=== PATIENT | female | born 1975 | race Caucasian/White ===

== ENCOUNTER 2016-05-04 13:45 | Emergency (ER) | payer MEDICAID ==
[2016-05-04 14:01] VITALS: O2SAT 96
[2016-05-04] MEDS ORDERED: NS 1,000 ML IV ONE (14:11)
[2016-05-04] MEDS ORDERED: HYDROmorphONE/DILAUDID 1 MG/ML SYR IVP ONE (14:11)
[2016-05-04] MEDS ORDERED: LORazepam 2 MG/ML INJ IVP ONE (14:11)
--- NOTE | 2016-05-04 14:14 | EDPHY ---
H & P Stated Complaint: Burning vagina pain, ETOH withdrawl Time Seen by Provider: 05/04/16 14:10 HPI/ROS: CHIEF COMPLAINT: Vaginal burning and withdrawal HISTORY OF PRESENT ILLNESS: The patient is a 41-year-old female who comes to the emergency department with her complaining of withdrawal symptoms as well as vaginal burning. She states that her last drink was about 24 hours ago. She is an alcoholic. She had been doing well until 2 weeks ago when she had a spontaneous miscarriage. She states that she bled for about 10 days. She stopped bleeding 3 days ago. She was only 5 or 6 weeks along. She became depressed and went on "a Rogers". She began notice vaginal pain and burning about 2 days ago. She has not had any rashes or discharge. She denies any sexual promiscuity. She is now vomiting as well from withdrawals. She is tremulous and tachycardic and hypertensive. REVIEW OF SYSTEMS: Constitutional: denies: chills, fever, recent illness, recent injury EENTM: denies: blurred vision, double vision, nose congestion Respiratory: denies: cough, shortness of breath Cardiac: denies: chest pain, irregular heart rate, lightheadedness, palpitations Gastrointestinal/Abdominal: denies: abdominal pain, diarrhea, nausea, vomiting, blood streaked stools Genitourinary: See HPI Musculoskeletal: denies: joint pain, muscle pain Skin: denies: lesions, rash, jaundice, bruising Neurological: denies: headache, numbness, paresthesia, tingling, dizziness, weakness Hematologic/Lymphatic: denies: blood clots, easy bleeding, easy bruising Immunologic/allergic: denies: HIV/AIDS, transplant EXAM: GENERAL: Well-appearing, well-nourished and in no acute distress. HEAD: Atraumatic, normocephalic. EYES: Pupils equal round and reactive to light, extraocular movements intact, sclera anicteric, conjunctiva are normal. ENT: TMs normal, nares patent, oropharynx clear without exudates. Moist mucous membranes. NECK: Normal range of motion, supple without lymphadenopathy or JVD. LUNGS: Breath sounds clear to auscultation bilaterally and equal. No wheezes rales or rhonchi. HEART: Regular rate and rhythm without murmurs, rubs or gallops. ABDOMEN: Soft, nontender, normoactive bowel sounds. No guarding, no rebound. No masses appreciated. : mild erythema to vulva . No significant swelling. No abscess. No discharge. No cervical motion tenderness. BACK: No CVA tenderness, no spinal tenderness, step-offs or deformities EXTREMITIES: Normal range of motion, no pitting or edema. No clubbing or cyanosis. NEUROLOGICAL: Cranial nerves II through XII grossly intact. Normal speech, normal gait. 5/5 strength, normal movement in all extremities, normal sensation PSYCH: Normal mood, normal affect. SKIN: Warm, dry, normal turgor, no visible rashes or lesions. Source: Patient Exam Limitations: No limitations - Personal History LMP (Females 10-55): 1-7 Days Ago Current Tetanus/Diphtheria Vaccine: Unsure Current Tetanus Diphtheria and Acellular Pertussis (TDAP): Unsure - Medical/Surgical History Hx Asthma: No Hx Chronic Respiratory Disease: No Hx Diabetes: No Hx Cardiac Disease: No Hx Renal Disease: No Hx Cirrhosis: No Hx Alcoholism: Yes Hx HIV/AIDS: No Hx Splenectomy or Spleen Trauma: No Other PMH: etoh. dermatomatasitis. - Family History Significant Family History: No pertinent family hx - Social History Smoking Status: Current some day smoker Alcohol Use: Heavy Drug Use: Marijuana Constitutional: Initial Vital Signs Temperature (C) 36.8 C 05/04/16 13:59 Heart Rate 84 05/04/16 13:59 Respiratory Rate 16 05/04/16 13:59 Blood Pressure 168/118 H 05/04/16 13:59 O2 Sat (%) 96 05/04/16 13:59 O2 Delivery Mode Room Air Allergies/Adverse Reactions: Penicillins Allergy (Intermediate, Verified 05/04/16 14:01) Rash Home Medications: Medication Instructions Recorded Fluconazole [Diflucan (*)] 150 mg PO ONCE #1 tab 05/04/16 Medical Decision Making ED Course/Re-evaluation: Patient has mild erythema vulva consistent with a candidiasis. Treat her with Diflucan. GC Chlamydia and wet prep been sent. She is feeling much better after Ativan. She is eager to go home with her who is a rate addiction recovery counselor. She has resources. She declines alcohol recovery Center. I will discharge her with a take-home pack of Librium. 3:10 p.m. I discussed the case with Dr. Erika Gould who agrees with follow up for repeat quant. She does not recommend ultrasound. If the patient is not currently bleeding. Differential Diagnosis: Partial list of the Differential diagnosis considered include but were not limited to; it denies this, pelvic inflammatory disease, yeast infection, alcohol withdrawal, anxiety and although unlikely based on the history and physical exam, I also considered , trauma. I discussed these differential diagnoses and the plan with the patient as well as the usual and expected course. The patient understands that the diagnosis is provisional and that in medicine we are not always correct and that further workup is often warranted. Usual and customary warnings were given. All of the patient's questions were answered. The patient was instructed to return to the emergency department should the symptoms at all worsen or return, otherwise to followup with the physician as we discussed. - Data Points Laboratory Results: Laboratory Results 05/04/16 14:20 05/04/16 14:20 05/04/16 14:40 C.trachomatis RNA (TMA) NEGATIVE (NEGATIVE) N.gonorrhoeae RNA (TMA) NEGATIVE (NEGATIVE) Medications Given: Discontinued Medications Chlordiazepoxide (Librium 25 Mg Prepack#6) 1 btl TAKEHOME EDNOW ONE Stop: 05/04/16 14:49 Last Admin: 05/04/16 15:09 Dose: 1 btl Fluconazole (Diflucan) 150 mg PO ONCE ONE Stop: 05/04/16 14:45 Last Admin: 05/04/16 15:09 Dose: 150 mg Hydromorphone HCl (Dilaudid) 1 mg IVP EDNOW ONE Stop: 05/04/16 14:12 Last Admin: 05/04/16 14:30 Dose: 1 mg Sodium Chloride (Ns) 1,000 mls @ 0 mls/hr IV ONCE ONE PRN Reason: Wide Open Stop: 05/04/16 14:12 Last Admin: 05/04/16 14:29 Dose: 1,000 mls Lorazepam (Ativan Injection) 2 mg IVP EDNOW ONE Stop: 05/04/16 14:12 Last Admin: 05/04/16 14:29 Dose: 2 mg Ondansetron HCl (Zofran Odt) 4 mg PO EDNOW ONE Stop: 05/04/16 15:18 Last Admin: 05/04/16 15:18 Dose: 4 mg Departure - Departure Disposition: Home, Routine, Self-Care Clinical Impression: Yeast infection of the vagina Alcohol withdrawal Qualifiers: Complication of substance-induced condition: with unspecified complication Qualified Code(s): F10.239 - Alcohol dependence with withdrawal, unspecified Condition: Fair Instructions: Chlordiazepoxide (By mouth), Vulvovaginal Candidiasis (ED), Alcohol Withdrawal (ED) Referrals: Fabiola Reese DO [Doctor of Osteopathy] - As per Instructions Erika Gould MD [Medical Doctor] - As per Instructions Prescriptions: Fluconazole [Diflucan (*)] 150 mg PO ONCE #1 tab
[2016-05-04 14:35] LABS: % IMMATURE GRANULYOCYTES 0.2 % (0.0-1.1); ABSOLUTE IMMATURE GRANULOCYTES 0.02 10^3/uL (0.00-0.10); ADD DIFF? NO; ADD MORPH? NO; ADD SCAN? NO; ATYPICAL LYMPHOCYTE FLAG 0 (0-99); FRAGMENT RBC FLAG 0 (0-99); HEMATOCRIT 40.4 % (38.0-47.0); HEMOGLOBIN 14.1 g/dL (12.6-16.3); LEFT SHIFT FLG 0 (0-99); LIPEMIA HEMOLYSIS FLAG 90 (0-99); MEAN CELL HEMOGLOBIN 33.3 pg (27.9-34.1); MEAN CELL HEMOGLOBIN CONCENTR. 34.9 g/dL (32.4-36.7); MEAN CELL VOLUME 95.3 fL (81.5-99.8); MEAN PLATELET VOLUME 9.4 fL (8.7-11.7); PLATELET CLUMPS FLAG 0 (0-99); PLATELET COUNT 266 10^3/uL (150-400); RED BLOOD CELL COUNT 4.24 10^6/uL (4.18-5.33); RED CELL DISTRIBUTION WIDTH 12.3 % (11.5-15.2)
[2016-05-04] MEDS ORDERED: FLUCONAZOLE 150 MG TAB PO ONE (14:44)
[2016-05-04] MEDS ORDERED: CHLORDIAZEPOXIDE 25MG PREPK#6 BTL TAKEHOME ONE (14:48)
[2016-05-04 14:51] LABS: ANION GAP 15 mEq/L (8-16); CALCIUM 10.8 mg/dL (8.5-10.4); CARBON DIOXIDE 21 mEq/l (22-31); CHLORIDE 101 mEq/L (97-110); CREATININE 0.7 mg/dL (0.6-1.0); GLOMERULAR FILTRATION RATE > 60; GLUCOSE 101 mg/dL (70-100); POTASSIUM 3.9 mEq/L (3.5-5.2); SODIUM 137 mEq/L (134-144)
[2016-05-04] MEDS ORDERED: ONDANSETRON DISINTEGRATING 4 MG TAB ONE (15:08)
[2016-05-04] MEDS ORDERED: ONDANSETRON DISINTEGRATING 4 MG TAB PO ONE (15:17)
[2016-05-04 15:18] LABS: COLOR YELLOW; LEUKOCYTE ESTERASE,URINE NEGATIVE (NEGATIVE); NITRITE,URINE NEGATIVE (NEGATIVE)
[2016-05-04 15:22] VITALS: BP 154/103; PULSE 75; RESP 18; TEMP 97.9
[2016-05-04 15:26] LABS: MUCUS TRACE /lpf (NONE-1+)
[2016-05-06 13:17] LABS: CHLAMYDIA AMPLIFICATION GENPRB NEGATIVE (NEGATIVE)
== END 2016-05-04 15:22 | disposition home or self-care (01) ==
DX: F10.239 Alcohol dependence with withdrawal, unspecified (principal); B37.3 Candidiasis of vulva and vagina; F17.200 Nicotine dependence, unspecified, uncomplicated
CPT/HCPCS: 96374; J1170; J2060

== ENCOUNTER 2016-06-16 16:23 | Emergency (ER) | payer MEDICAID ==
--- NOTE | 2016-06-16 16:31 | EDPHY ---
H & P Time Seen by Provider: 06/16/16 16:31 HPI/ROS: CHIEF COMPLAINT: Shaky and vaginal pain HISTORY OF PRESENT ILLNESS: Patient presents shaky today having had last drink yesterday. History of alcoholism. Symptoms are moderate to severe. She went to the bathroom and urinated and then had pain. She is not 100% sure if she can tell me it is dysuria or vaginal pain but feels similar to previous ED visit when she was diagnosed with the UTI. Symptoms mild to moderate. REVIEW OF SYSTEMS: Eye: no change in vision ENT: no sore throat Cardiac: no chest pain or syncope Pulmonary: no cough or SOB Abdomen: no vomiting, diarrhea, abdominal pain Musculoskeletal: no back pain. Injured right knee several weeks ago when she fell trying to get her child. Skin: no rash Neuro: no headache Constitutional: no fever : Vaginal discomfort burning and pain after urinating today. No vaginal bleeding. A comprehensive 10 point review of systems is otherwise negative aside from elements mentioned in the history of present illness. PAST MEDICAL HISTORY: Alcoholism Social history: Last drink yesterday General Appearance: Alert and conversant, cooperative. Eyes: No scleral icterus. ENT, Mouth: Normal mucous membranes. Respiratory: Normal respiratory effort, breath sounds equal, lungs are clear to auscultation. Cardiovascular: Regular rate and rhythm. Gastrointestinal: Abdomen is soft and non tender. Neurological: Alert and oriented x3. Normally conversant. Face symmetric, normal movement and sensation in all extremities. Tremulous at rest Skin: Bruising on the right knee Musculoskeletal: Tenderness over the right patella but good range of motion of the knee. Psychiatric: Tearful and moderately anxious. Emergency Department course/MDM: IV normal saline and Ativan 2 mg IV. Plan for urinalysis and pelvic exam. X-ray of the right knee. 1703: Pelvic exam performed with patient's nurse in the room shows normal external genitalia, no herpes lesions or other external abnormalities, normal cervix, minimal discharge, no cervical motion tenderness. 1815: Results today discussed including negative knee x-ray, she is less tremulous now, gave a urine sample, will arrange treatment plan once resulted. 1850: Feels better, looks more comfortable, results discussed. At this point her microscopic hematuria is reviewed but she does not have abdominal or flank pain I think that with primarily vaginal symptoms that renal colic would be unlikely. Treated with Pyridium and ibuprofen. GC and chlamydia is pending but without significant discharge or cervical motion tenderness I would not treat her empirically. I think urinary tract infection or herpes or trichomonas or BV or froylan or ectopic is also unlikely. Smoking Status: Current some day smoker Constitutional: Initial Vital Signs Temperature (C) 36.9 C 06/16/16 16:25 Heart Rate 98 06/16/16 16:25 Respiratory Rate 18 06/16/16 16:25 Blood Pressure 143/104 H 06/16/16 16:25 O2 Sat (%) 98 06/16/16 16:25 O2 Delivery Mode Room Air Allergies/Adverse Reactions: Penicillins Allergy (Intermediate, Verified 05/04/16 14:01) Rash Home Medications: Medication Instructions Recorded NK [No Known Home Meds] 06/16/16 Medical Decision Making - Diagnostics Imaging Results: Imaging Impressions Knee X-Ray 06/16/16 16:38 Impression: 1. Prepatellar soft tissue swelling. 2. No definite right knee fracture. Right knee x-ray personally interpreted as negative for fracture or dislocation. Imaging: I viewed and interpreted images myself Differential Diagnosis: Differential for vaginal burning considered including but not limited to herpes , UTI, bacterial vaginosis, yeast infection. - Data Points Laboratory Results: Laboratory Results 06/16/16 16:42 06/16/16 16:42 06/16/16 06/16/16 06/16/16 18:15 17:00 17:00 WBC RBC Hgb Hct MCV MCH MCHC RDW Plt Count MPV Neut % (Auto) Lymph % (Auto) [place] % (Auto) Eos % (Auto) Baso % (Auto) Nucleat RBC Rel Count Absolute Neuts (auto) Absolute Lymphs (auto) Absolute Monos (auto) Absolute Eos (auto) Absolute Basos (auto) Absolute Nucleated RBC Immature Gran % Immature Gran # Sodium Potassium Chloride Carbon Dioxide Anion Gap BUN Creatinine Estimated GFR Glucose Calcium Beta HCG, Qual Urine RBC 10-15 /hpf H /hpf (0-3) Urine WBC 1-3 /hpf /hpf (0-3) Ur Epithelial Cells TRACE /lpf /lpf (NONE-1+) Urine Mucus 4+ /lpf H /lpf (NONE-1+) Trichomonas (Wet Prep) NO YEAST C.trachomatis RNA (TMA) Pending N.gonorrhoeae RNA (TMA) Pending 06/16/16 06/16/16 06/16/16 16:42 16:42 16:42 WBC 10.07 10^3/uL H 10^3/uL (3.80-9.50) RBC 4.32 10^6/uL 10^6/uL (4.18-5.33) Hgb 14.3 g/dL g/dL (12.6-16.3) Hct 40.3 % % (38.0-47.0) MCV 93.3 fL fL (81.5-99.8) MCH 33.1 pg pg (27.9-34.1) MCHC 35.5 g/dL g/dL (32.4-36.7) RDW 12.8 % % (11.5-15.2) Plt Count 269 10^3/uL 10^3/uL (150-400) MPV 9.4 fL fL (8.7-11.7) Neut % (Auto) 66.4 % % (39.3-74.2) Lymph % (Auto) 23.3 % % (15.0-45.0) [place] % (Auto) 8.3 % % (4.5-13.0) Eos % (Auto) 0.8 % % (0.6-7.6) Baso % (Auto) 0.8 % % (0.3-1.7) Nucleat RBC Rel Count 0.0 % % (0.0-0.2) Absolute Neuts (auto) 6.68 10^3/uL H 10^3/uL (1.70-6.50) Absolute Lymphs (auto) 2.35 10^3/uL 10^3/uL (1.00-3.00) Absolute Monos (auto) 0.84 10^3/uL H 10^3/uL (0.30-0.80) Absolute Eos (auto) 0.08 10^3/uL 10^3/uL (0.03-0.40) Absolute Basos (auto) 0.08 10^3/uL 10^3/uL (0.02-0.10) Absolute Nucleated RBC 0.00 10^3/uL 10^3/uL (0-0.01) Immature Gran % 0.4 % % (0.0-1.1) Immature Gran # 0.04 10^3/uL 10^3/uL (0.00-0.10) Sodium 134 mEq/L mEq/L (134-144) Potassium 3.7 mEq/L mEq/L (3.5-5.2) Chloride 101 mEq/L mEq/L (97-110) Carbon Dioxide 21 mEq/l L mEq/l (22-31) Anion Gap 12 mEq/L mEq/L (8-16) BUN 9 mg/dL mg/dL (7-23) Creatinine 0.8 mg/dL mg/dL (0.6-1.0) Estimated GFR > 60 Glucose 117 mg/dL H mg/dL (70-100) Calcium 10.1 mg/dL mg/dL (8.5-10.4) Beta HCG, Qual NEGATIVE Urine RBC Urine WBC Ur Epithelial Cells Urine Mucus Trichomonas (Wet Prep) C.trachomatis RNA (TMA) N.gonorrhoeae RNA (TMA) Medications Given: Discontinued Medications Sodium Chloride (Ns) 1,000 mls @ 0 mls/hr IV ONCE ONE PRN Reason: Wide Open Stop: 06/16/16 16:38 Last Admin: 06/16/16 16:45 Dose: 1,000 mls Sodium Chloride (Ns) 1,000 mls @ 0 mls/hr IV ONCE ONE PRN Reason: Wide Open Stop: 06/16/16 16:38 Last Admin: 06/16/16 16:45 Dose: 1,000 mls Ibuprofen (Motrin) 600 mg PO EDNOW ONE Stop: 06/16/16 18:53 Last Admin: 06/16/16 18:56 Dose: 600 mg Lorazepam (Ativan Injection) 2 mg IVP EDNOW ONE Stop: 06/16/16 16:39 Last Admin: 06/16/16 16:44 Dose: 2 mg Ondansetron HCl (Zofran) 4 mg IVP EDNOW ONE Stop: 06/16/16 16:38 Last Admin: 06/16/16 16:46 Dose: 4 mg Phenazopyridine HCl (Pyridium) 200 mg PO EDNOW ONE Stop: 06/16/16 18:54 Last Admin: 06/16/16 18:55 Dose: 200 mg Departure - Departure Disposition: Home, Routine, Self-Care Clinical Impression: Vaginal discomfort Alcohol withdrawal Qualifiers: Complication of substance-induced condition: uncomplicated Qualified Code(s): F10.230 - Alcohol dependence with withdrawal, uncomplicated Contusion of right knee Qualifiers: Encounter type: initial encounter Qualified Code(s): S80.01XA - Contusion of right knee, initial encounter Condition: Good Instructions: Contusion in Adults (ED), Alcohol Withdrawal (ED) Additional Instructions: Pelvic infection testing is pending, call the emergency department tomorrow for results. [phone] Your referred to the on-call OBGYN Dr. Ovalles if your symptoms persist. Referrals: [facility],. [Clinic] - As per Instructions Dorcas Ovalles MD [Medical Doctor] - 2-3 days, if not improved ()
[2016-06-16] MEDS ORDERED: ONDANSETRON 4 MG/2 ML VIAL IVP ONE (16:37)
[2016-06-16] MEDS ORDERED: NS 1,000 ML IV ONE ×2 (16:37)
[2016-06-16] MEDS ORDERED: LORazepam 2 MG/ML INJ IVP ONE (16:38)
[2016-06-16 16:49] LABS: % IMMATURE GRANULYOCYTES 0.4 % (0.0-1.1); ABSOLUTE IMMATURE GRANULOCYTES 0.04 10^3/uL (0.00-0.10); ADD DIFF? NO; ADD MORPH? NO; ADD SCAN? NO; ATYPICAL LYMPHOCYTE FLAG 10 (0-99); FRAGMENT RBC FLAG 0 (0-99); HEMATOCRIT 40.3 % (38.0-47.0); HEMOGLOBIN 14.3 g/dL (12.6-16.3); LEFT SHIFT FLG 0 (0-99); LIPEMIA HEMOLYSIS FLAG 90 (0-99); MEAN CELL HEMOGLOBIN 33.1 pg (27.9-34.1); MEAN CELL HEMOGLOBIN CONCENTR. 35.5 g/dL (32.4-36.7); MEAN CELL VOLUME 93.3 fL (81.5-99.8); MEAN PLATELET VOLUME 9.4 fL (8.7-11.7); PLATELET CLUMPS FLAG 0 (0-99); PLATELET COUNT 269 10^3/uL (150-400); RED BLOOD CELL COUNT 4.32 10^6/uL (4.18-5.33); RED CELL DISTRIBUTION WIDTH 12.8 % (11.5-15.2)
[2016-06-16 17:00] LABS: ANION GAP 12 mEq/L (8-16); CALCIUM 10.1 mg/dL (8.5-10.4); CARBON DIOXIDE 21 mEq/l (22-31); CHLORIDE 101 mEq/L (97-110); CREATININE 0.8 mg/dL (0.6-1.0); GLOMERULAR FILTRATION RATE > 60; GLUCOSE 117 mg/dL (70-100); POTASSIUM 3.7 mEq/L (3.5-5.2); SODIUM 134 mEq/L (134-144)
[2016-06-16 18:43] LABS: MUCUS 4+ /lpf (NONE-1+)
[2016-06-16] MEDS ORDERED: IBUPROFEN 600 MG TAB PO ONE (18:52)
[2016-06-16] MEDS ORDERED: PHENAZOPYRIDINE HCL 200 MG TAB PO ONE (18:53)
[2016-06-16 19:07] VITALS: BP 153/102; PULSE 76; RESP 20; TEMP 99; O2SAT 97
[2016-06-17 14:13] LABS: CHLAMYDIA AMPLIFICATION GENPRB NEGATIVE (NEGATIVE)
== END 2016-06-16 19:07 | disposition home or self-care (01) ==
DX: N89.8 Other specified noninflammatory disorders of vagina (principal); F10.230 Alcohol dependence with withdrawal, uncomplicated; S80.01XA Contusion of right knee, initial encounter; F17.200 Nicotine dependence, unspecified, uncomplicated; W19.XXXA Unspecified fall, initial encounter
CPT/HCPCS: 96374; J2060; J2405

== ENCOUNTER 2016-09-13 14:41 | Emergency (ER) | payer MEDICAID ==
[2016-09-13 14:51] VITALS: TEMP 98.2
[2016-09-13] MEDS ORDERED: LORazepam 1 MG TAB ONE (14:53)
[2016-09-13] MEDS ORDERED: LORazepam 1 MG TAB PO ONE (14:55)
[2016-09-13] MEDS ORDERED: ONDANSETRON 4 MG/2 ML VIAL IVP ONE (15:21)
[2016-09-13] MEDS ORDERED: NS 1,000 ML IV ONE ×2 (15:21→15:27)
[2016-09-13] MEDS ORDERED: LORazepam 2 MG/ML INJ IVP ONE ×2 (15:27→16:08)
[2016-09-13 15:32] LABS: % IMMATURE GRANULYOCYTES 0.7 % (0.0-1.1); ABSOLUTE IMMATURE GRANULOCYTES 0.06 10^3/uL (0.00-0.10); ADD DIFF? NO; ADD MORPH? NO; ADD SCAN? NO; ATYPICAL LYMPHOCYTE FLAG 0 (0-99); FRAGMENT RBC FLAG 0 (0-99); HEMATOCRIT 39.8 % (38.0-47.0); HEMOGLOBIN 14.1 g/dL (12.6-16.3); LEFT SHIFT FLG 0 (0-99); LIPEMIA HEMOLYSIS FLAG 90 (0-99); MEAN CELL HEMOGLOBIN 32.8 pg (27.9-34.1); MEAN CELL HEMOGLOBIN CONCENTR. 35.4 g/dL (32.4-36.7); MEAN CELL VOLUME 92.6 fL (81.5-99.8); MEAN PLATELET VOLUME 9.9 fL (8.7-11.7); PLATELET CLUMPS FLAG 0 (0-99); PLATELET COUNT 173 10^3/uL (150-400); RED CELL DISTRIBUTION WIDTH 13.2 % (11.5-15.2)
--- NOTE | 2016-09-13 15:33 | EDPHY ---
H & P Time Seen by Provider: 09/13/16 15:06 HPI/ROS: CHIEF COMPLAINT: Shaky and vomiting HISTORY OF PRESENT ILLNESS: Patient is a history of chronic alcoholism with her last drink today at 4:00 a.m.. Her left town this morning and her 1 -2/3 year old son has a trestle builder. She presents with multiple episodes of nausea and vomiting since late last night , or early this morning. Symptoms are severe but not associated with diarrhea or abdominal pain. She just feels achy all over. No coffee-ground emesis or hematemesis. REVIEW OF SYSTEMS: Eye: no change in vision ENT: no sore throat Cardiac: no chest pain or syncope Pulmonary: no cough or SOB Abdomen: Total HPI Musculoskeletal: no back pain Skin: no rash Neuro: no headache Constitutional: no fever : no urinary symptoms Patient had vaginal and knee symptoms last time I saw her which have both resolved A comprehensive 10 point review of systems is otherwise negative aside from elements mentioned in the history of present illness. PAST MEDICAL HISTORY: Includes alcoholism with history of withdrawal seizures. Denies . Social history: Last alcohol 4:00 a.m. today. . General Appearance: Alert and conversant, cooperative. Eyes: No scleral icterus. ENT, Mouth: Slightly dry mucous membranes. Respiratory: Normal respiratory effort, breath sounds equal, lungs are clear to auscultation. Cardiovascular: Regular rate and rhythm. Gastrointestinal: Abdomen is soft and non tender. Neurological: Alert and oriented x3. Normally conversant. Face symmetric, normal movement and sensation in all extremities. Not hallucinating, but very tremulous. Skin: Warm and dry, no rashes. Musculoskeletal: No peripheral edema and no joint swelling. Psychiatric: Not agitated. Not hallucinating. Emergency Department course/MDM: Patient presents with acute alcohol withdrawal but without evidence of seizure or delirium tremens. Ativan 1 mg orally and triage in 2 mg IV Ativan in the emergency department. Zofran 4 mg IV and normal saline 2 L IV for nausea vomiting and dehydration. 1605: Re-examined, labs discussed including potassium 3.4. CO2 slightly low consistent with dehydration. Additional 1 mg IV Ativan. 1735: Feels better, wants to be discharged. Patient was offered, but declines detox. Smoking Status: Current some day smoker Constitutional: Initial Vital Signs Temperature (C) 36.8 C 09/13/16 14:48 Heart Rate 93 09/13/16 14:48 Respiratory Rate 18 09/13/16 14:48 Blood Pressure 160/100 H 09/13/16 14:48 O2 Sat (%) 97 09/13/16 14:48 O2 Delivery Mode Room Air Allergies/Adverse Reactions: Penicillins Allergy (Intermediate, Verified 09/13/16 14:47) Rash Home Medications: Medication Instructions Recorded NK [No Known Home Meds] 06/16/16 Medical Decision Making Differential Diagnosis: Differential diagnosis considered for nausea and vomiting including but not limited to alcohol withdrawal, gastroenteritis, gastritis, appendicitis, and medication side effect. - Data Points Laboratory Results: Laboratory Results 09/13/16 15:20 09/13/16 15:20 09/13/16 09/13/16 09/13/16 15:20 15:20 15:20 WBC RBC Hgb Hct MCV MCH MCHC RDW Plt Count MPV Neut % (Auto) Lymph % (Auto) [place] % (Auto) Eos % (Auto) Baso % (Auto) Nucleat RBC Rel Count Absolute Neuts (auto) Absolute Lymphs (auto) Absolute Monos (auto) Absolute Eos (auto) Absolute Basos (auto) Absolute Nucleated RBC Immature Gran % Immature Gran # Sodium 137 mEq/L mEq/L (134-144) Potassium 3.4 mEq/L L mEq/L (3.5-5.2) Chloride 102 mEq/L mEq/L (97-110) Carbon Dioxide 18 mEq/l L mEq/l (22-31) Anion Gap 17 mEq/L H mEq/L (8-16) BUN 8 mg/dL mg/dL (7-23) Creatinine 0.7 mg/dL mg/dL (0.6-1.0) Estimated GFR > 60 Glucose 107 mg/dL H mg/dL (70-100) Calcium 10.7 mg/dL H mg/dL (8.5-10.4) Phosphorus 3.0 mg/dL mg/dL (2.5-4.5) Total Bilirubin 0.9 mg/dL mg/dL (0.1-1.4) Conjugated Bilirubin 0.3 mg/dL mg/dL (0.0-0.5) Unconjugated Bilirubin 0.6 mg/dL mg/dL (0.0-1.1) AST 31 IU/L IU/L (14-46) ALT 16 IU/L IU/L (9-52) Alkaline Phosphatase 74 IU/L IU/L (38-126) Total Protein 7.7 g/dL g/dL (6.3-8.2) Albumin 4.3 g/dL g/dL (3.5-5.0) Beta HCG, Qual NEGATIVE 09/13/16 15:20 WBC 9.04 10^3/uL 10^3/uL (3.80-9.50) RBC 4.30 10^6/uL 10^6/uL (4.18-5.33) Hgb 14.1 g/dL g/dL (12.6-16.3) Hct 39.8 % % (38.0-47.0) MCV 92.6 fL fL (81.5-99.8) MCH 32.8 pg pg (27.9-34.1) MCHC 35.4 g/dL g/dL (32.4-36.7) RDW 13.2 % % (11.5-15.2) Plt Count 173 10^3/uL 10^3/uL (150-400) MPV 9.9 fL fL (8.7-11.7) Neut % (Auto) 77.2 % H % (39.3-74.2) Lymph % (Auto) 15.5 % % (15.0-45.0) [place] % (Auto) 5.3 % % (4.5-13.0) Eos % (Auto) 0.4 % L % (0.6-7.6) Baso % (Auto) 0.9 % % (0.3-1.7) Nucleat RBC Rel Count 0.0 % % (0.0-0.2) Absolute Neuts (auto) 6.98 10^3/uL H 10^3/uL (1.70-6.50) Absolute Lymphs (auto) 1.40 10^3/uL 10^3/uL (1.00-3.00) Absolute Monos (auto) 0.48 10^3/uL 10^3/uL (0.30-0.80) Absolute Eos (auto) 0.04 10^3/uL 10^3/uL (0.03-0.40) Absolute Basos (auto) 0.08 10^3/uL 10^3/uL (0.02-0.10) Absolute Nucleated RBC 0.00 10^3/uL 10^3/uL (0-0.01) Immature Gran % 0.7 % % (0.0-1.1) Immature Gran # 0.06 10^3/uL 10^3/uL (0.00-0.10) Sodium Potassium Chloride Carbon Dioxide Anion Gap BUN Creatinine Estimated GFR Glucose Calcium Phosphorus Total Bilirubin Conjugated Bilirubin Unconjugated Bilirubin AST ALT Alkaline Phosphatase Total Protein Albumin Beta HCG, Qual Medications Given: Discontinued Medications Sodium Chloride (Ns) 1,000 mls @ 0 mls/hr IV ONCE ONE; Wide Open PRN Reason: Protocol Stop: 09/13/16 15:22 Last Admin: 09/13/16 15:26 Dose: 1,000 mls Sodium Chloride (Ns) 1,000 mls @ 0 mls/hr IV EDNOW ONE; Wide Open PRN Reason: Protocol Stop: 09/13/16 15:28 Last Admin: 09/13/16 15:32 Dose: 1,000 mls Lorazepam (Ativan) 1 mg PO EDNOW ONE Stop: 09/13/16 14:56 Last Admin: 09/13/16 14:57 Dose: 1 mg Lorazepam (Ativan Injection) 2 mg IVP EDNOW ONE Stop: 09/13/16 15:28 Last Admin: 09/13/16 15:31 Dose: 2 mg Lorazepam (Ativan Injection) 1 mg IVP EDNOW ONE Stop: 09/13/16 16:09 Last Admin: 09/13/16 16:22 Dose: Not Given Ondansetron HCl (Zofran) 4 mg IVP EDNOW ONE Stop: 09/13/16 15:22 Last Admin: 09/13/16 15:27 Dose: 4 mg Departure - Departure Disposition: Home, Routine, Self-Care Clinical Impression: Alcohol withdrawal Qualifiers: Complication of substance-induced condition: uncomplicated Qualified Code(s): F10.230 - Alcohol dependence with withdrawal, uncomplicated Condition: Good Instructions: Alcohol Withdrawal (ED) Referrals: Isai Gillespie MD [Medical Doctor] - As per Instructions
[2016-09-13 15:50] LABS: ANION GAP 17 mEq/L (8-16); CALCIUM 10.7 mg/dL (8.5-10.4); CARBON DIOXIDE 18 mEq/l (22-31); CHLORIDE 102 mEq/L (97-110); CREATININE 0.7 mg/dL (0.6-1.0); GLOMERULAR FILTRATION RATE > 60; GLUCOSE 107 mg/dL (70-100); POTASSIUM 3.4 mEq/L (3.5-5.2); SODIUM 137 mEq/L (134-144)
[2016-09-13 18:02] VITALS: BP 129/76; PULSE 76; RESP 16; O2SAT 96
[2016-09-13 18:13] LABS: ALBUMIN 4.3 g/dL (3.5-5.0); BILIRUBIN,TOTAL 0.9 mg/dL (0.1-1.4); BILIRUBIN-CONJUGATED 0.3 mg/dL (0.0-0.5); BILIRUBIN-UNCONJUGATED 0.6 mg/dL (0.0-1.1); TOTAL PROTEIN 7.7 g/dL (6.3-8.2)
== END 2016-09-13 18:02 | disposition home or self-care (01) ==
DX: F10.230 Alcohol dependence with withdrawal, uncomplicated (principal); E86.9 Volume depletion, unspecified; F17.200 Nicotine dependence, unspecified, uncomplicated
CPT/HCPCS: 96374; J2060; J2405

== ENCOUNTER 2016-10-25 15:16 | Emergency (ER) | payer MEDICAID ==
[2016-10-25] MEDS ORDERED: NS 1,000 ML IV ONE (15:39)
[2016-10-25] MEDS ORDERED: ONDANSETRON 4 MG/2 ML VIAL IVP ONE (15:39)
[2016-10-25] MEDS ORDERED: DIAZEPAM 10 MG/2 ML SYR IVP ONE (15:40)
--- NOTE | 2016-10-25 16:04 | EDPHY ---
H & P Time Seen by Provider: 10/25/16 15:35 HPI/ROS: HPI Alcohol withdrawal. 41-year-old female by private vehicle with her . Patient has a long history of alcohol abuse. Patient reports that she drinks multiple 90 proved shooter's per day. States last drink was at 10:00 p.m. last night. Presents to the emergency department with complaint of alcohol withdrawal symptoms including anxiety and tremors. Denies seizure. Denies other complaints. She is amenable at this time going to the arc. She also reports nausea and vomiting since last night as well. She reports she often has nausea and vomiting associated with her drinking. ROS: Constitutional: No fever, no chills. No weakness. Eyes: No discharge. No changes in vision. ENT: No sore throat. No nasal congestion or rhinorrhea. Respiratory: No cough. No shortness of breath. Cardiac: No chest pain, no palpitations. Gastrointestinal: No abdominal pain, no vomiting, no diarrhea. Genitourinary: No hematuria. No dysuria or increased frequency with urination. Musculoskeletal: No back pain. No neck pain. No myalgias or arthralgias. Skin: No rashes. Neurological: No headache. No focal weakness or altered sensation. Past medical history: Alcohol abuse. Dermatomyositis. Social history: Smoker. Here with her . Has children. As above. Physical Exam: General Appearance: Alert, mild anxious. This patient is responding to questions appropriately and in full sentences. This patient appears well- hydrated and well-nourished. Eyes: Pupils equal and round no pallor or injection. No lid edema, erythema or injection. Respiratory: There are no retractions, lungs are clear to auscultation with good air movement bilaterally. Cardiovascular: Regular rate and rhythm. Mild tachycardia. No murmur. Gastrointestinal: Abdomen is soft and nontender, no masses, bowel sounds normal. No focal tenderness at McBurney's point. No Gu sign. Neurological: Motor sensory function is grossly intact. Cranial nerves are normal. Gait is normal. Skin: Warm and dry, no rashes. Musculoskeletal: Neck is supple and nontender. Mild resting tremor. Extremities are symmetrical. All joints range without pain or impingement. Psychiatric: No agitation. No depression. Database: EKG: Imaging: Procedures: Emergency department course: IV placed. She was placed on a elevator repair mechanic. She was started on IV normal saline with 1 L to be given over the next hour. She was initially given 10 mg of IV Valium. At 4:30 p.m. , the patient is up and ambulatory to the bathroom under their own power and with a normal gait. Her vital signs were reviewed and are unremarkable. She is not tachycardic. She reports feeling much better at this time. The patient is responding to questions appropriately and in full sentences. The liabilities of alcohol abuse have been discussed with this patient. This patient has been medically cleared for discharge to the [facility] with who will drive her there. She is scheduled to enroll in an inpatient detox program in [place] on Friday. She will be discharged with the standard Librium protocol to be administered by the [facility] staff. Followup and return to emergency department precautions discussed. All of the patient's questions were answered. The patient was discharged from emergency department in good condition with her . Differential Diagnosis: The differential diagnosis on this patient includes but is not limited to alcohol withdrawal, alcohol abuse. Delirium tremens unlikely. This represents a partial list of diagnoses considered. These considerations are based on history, physical exam, past history, reassessment and diagnostic testing. Smoking Status: Current some day smoker Constitutional: Initial Vital Signs Temperature (C) 37 C 10/25/16 15:17 Heart Rate 103 H 10/25/16 15:17 Respiratory Rate 18 10/25/16 15:17 Blood Pressure 147/109 H 10/25/16 15:17 O2 Sat (%) 95 10/25/16 15:17 O2 Delivery Mode Room Air Allergies/Adverse Reactions: Penicillins Allergy (Intermediate, Verified 09/13/16 14:47) Rash Home Medications: Medication Instructions Recorded Ondansetron Odt [Zofran Odt 4 mg 4 mg PO Q4PRN PRN #10 tab 10/25/16 (*)] Medical Decision Making - Data Points Laboratory Results: 10/25/16 14:02 Ethyl Alcohol < 10 mg/dL mg/dL (0-10) Medications Given: Discontinued Medications Diazepam (Valium Injection) 10 mg IVP EDNOW ONE Stop: 10/25/16 15:41 Last Admin: 10/25/16 16:06 Dose: 10 mg Sodium Chloride (Ns) 1,000 mls @ 0 mls/hr IV ONCE ONE; Wide Open PRN Reason: Protocol Stop: 10/25/16 15:40 Last Admin: 10/25/16 16:05 Dose: 1,000 mls Ondansetron HCl (Zofran) 4 mg IVP EDNOW ONE Stop: 10/25/16 15:40 Last Admin: 10/25/16 16:06 Dose: 4 mg Departure - Departure Disposition: Home, Routine, Self-Care Clinical Impression: Alcohol abuse, Alcohol withdrawal Condition: Good Instructions: Alcohol Withdrawal (ED) Additional Instructions: Read and follow provided instructions. Follow-up with your primary care physician in 2-3 days to discuss alcohol detox program options. Librium will be administered by the [facility] staff for your alcohol withdrawal symptoms. Return to the emergency department for worsening symptoms, seizure or other serious concerns. Referrals: NONE *PRIMARY CARE P,. [Primary Care Provider] - As per Instructions [facility] Detox 24 Hours [Outside] - As per Instructions Prescriptions: Ondansetron Odt [Zofran Odt 4 mg (*)] 4 mg PO Q4PRN PRN #10 tab PRN Reason: For Nausea & Vomiting
[2016-10-25] MEDS ORDERED: CHLORDIAZEPOXIDE 25MG PREPK#6 BTL TAKEHOME ONE (16:22)
[2016-10-25 16:24] LABS: ETHANOL SERUM < 10 mg/dL (0-10)
[2016-10-25 16:44] VITALS: BP 135/62
[2016-10-25] MEDS ORDERED: LORAZEPAM 1 MG PREPACK#4 BTL TAKEHOME ONE (17:05)
[2016-10-25 17:13] VITALS: PULSE 86; RESP 17; TEMP 97.5; O2SAT 97
== END 2016-10-25 17:18 | disposition home or self-care (01) ==
DX: F10.239 Alcohol dependence with withdrawal, unspecified (principal); F17.200 Nicotine dependence, unspecified, uncomplicated; E86.9 Volume depletion, unspecified
CPT/HCPCS: 96374; G0480; J2405

== ENCOUNTER 2016-12-10 18:36 | Emergency (ER) | payer MEDICAID ==
[2016-12-10 18:43] VITALS: TEMP 98.8; O2SAT 97
[2016-12-10] MEDS ORDERED: ONDANSETRON 4 MG/2 ML VIAL ONE (19:28)
--- NOTE | 2016-12-10 19:30 | EDPHY ---
H & P Time Seen by Provider: 12/10/16 19:18 HPI/ROS: CHIEF COMPLAINT: Alcohol withdrawal, vomiting HISTORY OF PRESENT ILLNESS: Patient is a 41-year-old female with a long history of alcohol abuse. She has been seen in the emergency department numerous times. She was last seen in the emergency department in October. She has subsequently had treat since then. Patient has been drinking heavily earlier last drink was at midnight last night. Patient has now developed withdrawal type symptoms. She is feeling jittery. She has also had nausea and vomiting the patient states that she just found out she is 12 weeks . REVIEW OF SYSTEMS: My complete review of systems is negative except as mentioned in the HPI. Past Medical/Surgical History: Alcohol abuse, dermatomyositis Smoking Status: Current some day smoker Physical Exam: 37.1, 137/101, 60, 16, 97% on room air GENERAL: No acute distress, alert. HEENT: Eyes normal to inspection, normal pharynx, mildly dry mucous membranes. No significant tongue tremor NECK: No thyromegaly, no lymphadenopathy, supple. RESPIRATORY: Clear to auscultation bilaterally, no rales, rhonchi or wheezing. CVS: Regular rate and rhythm, no rubs, murmurs, or gallops. ABDOMEN: Soft, nontender, nondistended, no organomegaly. BACK: Normal to inspection, no CVA tenderness. SKIN: Normal color, no rash, warm, dry. No pallor. EXTREMITIES: No pedal edema, no calf tenderness, no Homans sign or cords, no joint swelling. NEURO/PSYCH: Alert and oriented x3, normal mood and affect, normal motor sensory exam. No obvious cranial nerve deficit. Constitutional: Initial Vital Signs Temperature (C) 37.1 C 12/10/16 18:41 Heart Rate 68 12/10/16 18:41 Respiratory Rate 16 12/10/16 18:41 Blood Pressure 137/101 H 12/10/16 18:41 O2 Sat (%) 97 12/10/16 18:41 O2 Delivery Mode Room Air Allergies/Adverse Reactions: Penicillins Allergy (Intermediate, Verified 12/10/16 18:40) Rash Home Medications: Medication Instructions Recorded Ativan 12/10/16 Zokaylee Odt 12/10/16 Medical Decision Making ED Course/Re-evaluation: In the emergency department I discussed alcohol withdrawal with the patient. I discussed treatment options. This included evaluation and treatment [facility]. She refused this treatment plan. I discussed the risks of alcohol withdrawal as well as alcohol abuse to both the patient and her fetus. Patient' s heart rate is 68. She does not have significant tremor. I do not feel she needs benzodiazepine at this time. This is waiting the risk of alcohol withdrawal seizure versus the risk to her fetus. Patient was given normal saline 1 L IV for hydration and Zofran 4 mg IV for her nausea. I discussed the risks of Zofran with the patient. 2015: The patient is feeling better. She has no tremor on exam. Heart rate is normal. I again discussed my recommendation for alcohol recovery treatment. The patient does not want admission. She prefers to be discharged home. She was given warnings prior to leaving. I discussed the risk to her fetus. Differential Diagnosis: My differential includes but is not limited to , morning sickness, alcohol withdrawal, alcohol abuse, dehydration contrite abnormality sugar abnormality - Data Points Medications Given: Discontinued Medications Sodium Chloride (Ns) 1,000 mls @ 0 mls/hr IV EDNOW ONE; Wide Open PRN Reason: Protocol Stop: 12/10/16 19:32 Last Admin: 12/10/16 19:34 Dose: 1,000 mls Ondansetron HCl (Zofran) 4 mg IVP EDNOW ONE Stop: 12/10/16 19:32 Last Admin: 12/10/16 19:35 Dose: 4 mg Departure - Departure Disposition: Home, Routine, Self-Care Clinical Impression: Alcohol withdrawal Qualifiers: Complication of substance-induced condition: uncomplicated Qualified Code(s): F10.230 - Alcohol dependence with withdrawal, uncomplicated Qualifiers: Weeks of gestation: unspecified Qualified Code(s): Z34.90 - Encounter for supervision of normal , unspecified, unspecified trimester Condition: Good Instructions: (ED), Abuse of Alcohol (ED) Additional Instructions: Return with increasing heart rate, increasing shaking, worsening vomiting, or any other concerns. Referrals: Tristan Caruso MD [Medical Doctor] - 1-2 days without fail
[2016-12-10] MEDS ORDERED: NS 1,000 ML IV ONE (19:31)
[2016-12-10] MEDS ORDERED: ONDANSETRON 4 MG/2 ML VIAL IVP ONE (19:31)
[2016-12-10 20:23] VITALS: BP 123/68; PULSE 58; RESP 18
== END 2016-12-10 20:30 | disposition home or self-care (01) ==
PROC: 3E0337Z Introduction of Electrolytic and Water Balance Substance into Peripheral Vein, Percutaneous Approach (ICD-10-PCS; principal; 2016-12-10)
DX: O99.311 Alcohol use complicating pregnancy, first trimester (principal); F10.230 Alcohol dependence with withdrawal, uncomplicated; F17.200 Nicotine dependence, unspecified, uncomplicated; E86.9 Volume depletion, unspecified; Z3A.12 12 weeks gestation of pregnancy
CPT/HCPCS: 96374; J2405

== ENCOUNTER → 2016-12-12 | Outpatient (CLI) | payer MEDICAID | LOC: FIMAGING 08:53 | PROVIDERS: ATTEND Obstetrics & Gynecology | DX: O02.1 Missed abortion (principal) ==

== ENCOUNTER → 2018-04-21 | Outpatient (CLI) | payer MEDICAID | LOC: FIMAGING 09:10 | PROVIDERS: ATTEND Obstetrics & Gynecology | DX: O09.521 Supervision of elderly multigravida, first trimester (principal); Z3A.12 12 weeks gestation of pregnancy ==

== ENCOUNTER → 2018-06-08 | Outpatient (CLI) | payer MEDICAID | LOC: FIMAGING 09:30 | PROVIDERS: ATTEND Obstetrics & Gynecology | DX: O09.522 Supervision of elderly multigravida, second trimester (principal); Z3A.19 19 weeks gestation of pregnancy ==